=== PATIENT | male | born 1995 | race Caucasian/White ===

== ENCOUNTER 2018-08-16 14:12 | Emergency (ER) | payer BC ==
[2018-08-16 14:20] VITALS: BP 110/72
--- NOTE | 2018-08-16 14:43 | UC ---
Throat Pain/Nasal Conner HPI - HPI Summary HPI Summary: 23-year-old male comes to clinic today with a chief complaint of sinus congestion and sinus pressure and fatigue. His symptoms started about 7 weeks ago while he was away at college. Had some rhinorrhea and sinus pressure. He' s had some yellow rhinorrhea. His been sleeping quite a bit. Minimal sore throat. Has had some dry cough but denies any chest congestion or shortness of breath. - History of Current Complaint Chief Complaint: UCGeneralIllness Stated Complaint: COUGH Time Seen by Provider: 08/16/18 14:25 Pain Intensity: 0 - Allergies/Home Medications Allergies/Adverse Reactions: Allergies Allergy/AdvReac Type Severity Reaction Status Date / Time amoxicillin Allergy Rash Verified 08/16/18 14:21 PMH/Surg Hx/FS Hx/Imm Hx Previously Healthy: Yes - Surgical History Surgical History: Yes Surgery Procedure, Year, and Place: blastoma removed - Family History Known Family History: Positive: None - Social History Alcohol Use: Occasionally Substance Use Type: None Smoking Status (MU): Never Smoked Tobacco Review of Systems All Other Systems Reviewed And Are Negative: Yes Constitutional: Positive: Fatigue Skin: Positive: Negative Eyes: Positive: Negative ENT: Positive: Sinus Congestion, Sinus Pain/Tenderness Respiratory: Positive: Cough Cardiovascular: Positive: Negative Gastrointestinal: Positive: Negative Motor: Positive: Negative Neurovascular: Positive: Negative Musculoskeletal: Positive: Negative Neurological: Positive: Negative Psychological: Positive: Negative Is Patient Immunocompromised?: No Physical Exam Triage Information Reviewed: Yes Appearance: No Pain Distress, Well-Nourished, Ill-Appearing - MILD Vital Signs: Initial Vital Signs Temp 98 F 08/16/18 14:17 Pulse 50 08/16/18 14:17 Resp 14 08/16/18 14:17 BP 110/72 08/16/18 14:17 Pulse Ox 100 08/16/18 14:17 Vital Signs Reviewed: Yes Eye Exam: Normal Eyes: Positive: Conjunctiva Clear ENT: Positive: Pharynx normal, Nasal congestion, Nasal drainage, TMs normal Neck exam: Normal Neck: Positive: Supple Respiratory: Positive: Lungs clear, Normal breath sounds, No respiratory distress Cardiovascular: Positive: RRR Musculoskeletal Exam: Normal Musculoskeletal: Positive: Strength Intact, ROM Intact Neurological Exam: Normal Neurological: Positive: Alert, Muscle Tone Normal Psychological Exam: Normal Psychological: Positive: Normal Response To Family, Age Appropriate Behavior Skin Exam: Normal Throat Pain/Nasal Course/Dx - Course Course Of Treatment: The patient's fatigue may be from chronic sinusitis. He has an allergy to amoxicillin therefore we are treating with Omnicef. Also symptomatic treatment with saline nasal spray and hot steam. Mononucleosis is another possibility for his fatigue. CBC Monospot CMP and TSH are all pending. Patient should get reevaluated if his condition worsens or does not improve. - Differential Dx/Diagnosis Provider Diagnosis: Sinusitis, Fatigue Discharge - Sign-Out/Discharge Documenting (check all that apply): Patient Departure All imaging exams completed and their final reports reviewed: No Studies - Discharge Plan Condition: Stable Disposition: HOME Prescriptions: Cefdinir cap (NF) [Cefdinir 300 MG cap (NF)] 300 mg PO BID #20 cap Patient Education Materials: Sinusitis (ED), Fatigue (ED) Referrals: [facility] [Outside] Additional Instructions: FOLLOW UP WITH YOUR DOCTOR IF NOT COMPLETELY IMPROVED. YOUR LAB RESULTS ARE PENDING. GET RECHECKED FOR ANY WORSENING OF YOUR CONDITION OR QUESTIONS OR CONCERNS. - Billing Disposition and Condition Condition: STABLE Disposition: Home
[2018-08-17 11:23] LABS: Hematocrit 43 % (42-52); Hemoglobin 14.8 g/dl (14.0-18.0); Mean Corpuscular HGB Conc 35 g/dl (31-36); Mean Corpuscular Hemoglobin 30 pg (27-31); Mean Corpuscular Volume 85 fL (80-94); Mean Platelet Volume 8.7 fL (7.4-10.4); Platelet Count 214 10^3/ul (150-450); Red Blood Count 5.02 10^6/ul (4.00-5.40); Red Cell Distribution Width 13 % (10.5-15); White Blood Count 5.5 10^3/ul (3.5-10.8)
[2018-08-17 11:39] LABS: TSH (Thyroid Stimulating Horm) 0.98 mcIU/mL (0.34-5.60)
[2018-08-17 12:08] LABS: ABS Basophils 0 10^3/ul (0-0.2); ABS Eosinophils 0.1 10^3/ul (0-0.6); ABS Monocytes 0.6 10^3/ul (0-0.8); ABS Neutrophils 3.9 10^3/ul (1.5-7.7); ABS Nucleated RBC 0 10^3/ul; Eosinophil % 1.4 %; Lymphocyte % 17.7 %; Nucleated Red Blood Cells % 0.1
[2018-08-17 14:25] LABS: Albumin 4.5 g/dL (3.2-5.2); Calcium 9.7 mg/dL (8.6-10.3); Total Bilirubin 0.8 mg/dL (0.2-1.0)
[2018-08-17 14:31] LABS: Albumin/Globulin Ratio 1.8 (1-3); EGFR Non-African American 88.2 (>60); Globulin 2.5 g/dL (2-4)
--- NOTE | 2018-08-17 15:46 | UC ---
- Progress Note Progress Note: Monospot positive. Please let pt know. Avoid contact sports. Lots of rest and clear fluids. Tylenol/ibuprofen for discomfort. F/u with PCP for recheck in 2-3 weeks or sooner if symptoms worsen. Course/Dx - Diagnoses Provider Diagnoses: Sinusitis, Fatigue Discharge - Sign-Out/Discharge Documenting (check all that apply): Post-Discharge Follow Up All imaging exams completed and their final reports reviewed: No Studies - Discharge Plan Condition: Stable Disposition: HOME Prescriptions: Cefdinir cap (NF) [Cefdinir 300 MG cap (NF)] 300 mg PO BID #20 cap Patient Education Materials: Sinusitis (ED), Fatigue (ED) Referrals: [facility] [place] [facility] [Outside] Additional Instructions: FOLLOW UP WITH YOUR DOCTOR IF NOT COMPLETELY IMPROVED. YOUR LAB RESULTS ARE PENDING. GET RECHECKED FOR ANY WORSENING OF YOUR CONDITION OR QUESTIONS OR CONCERNS. - Billing Disposition and Condition Condition: STABLE Disposition: Home
== END 2018-08-16 15:20 | disposition home or self-care (01) ==
LOC: UCEAST 14:12
DX: J32.9 Chronic sinusitis, unspecified (principal); R53.83 Other fatigue; Z88.0 Allergy status to penicillin
CPT/HCPCS: 36415; 80053; 84443; 85025; 86308; 99212; G0463